=== PATIENT | female | born 1965 | race African-American/Black ===

== ENCOUNTER 2020-01-15 14:40 | Inpatient (IN) | payer OTHER ==
[2020-01-15] MEDS ORDERED: NICOTINE POLACRILEX 2 MG GUM BUC PRN (19:06)
[2020-01-15] MEDS ORDERED: IBUPROFEN 400 MG TABLET (FP) PO PRN (19:06)
[2020-01-15] MEDS ORDERED: guaiFENesin 200 MG/10 ML 10 ML UNIT-DOSE CUPS PO PRN (19:06)
[2020-01-15] MEDS ORDERED: P-EPHED 60MG/TRIPROLIDI 2.5MG TABLET PO PRN (19:06)
[2020-01-15] MEDS ORDERED: ACETAMINOPHEN 325 MG TABLET (FP) PO PRN (19:06)
[2020-01-15] MEDS ORDERED: MAGNESIUM HYDROX 2400MG/30ML ORAL SUSPENSION 30 ML CUP PO PRN (19:06)
[2020-01-15] MEDS ORDERED: LOPERAMIDE HCL 2 MG CAPSULE PO PRN (19:06)
[2020-01-15] MEDS ORDERED: MAG HYDROX/AL HYDROX/SIMETH 30 ML UNIT-DOSE CUP PO PRN (19:06)
[2020-01-15] MEDS ORDERED: MAGNESIUM CITRATE 300 ML BOTTLE PO PRN (19:06)
[2020-01-15] MEDS ORDERED: AMMONIUM LACTATE 12% LOTION 225 GM BOTTLE TP PRN (19:10)
[2020-01-15 19:40] VITALS: BMI 27.3
[2020-01-15] MEDS: THIAMINE HCL 100 MG TABLET (FP) PO SCH (21:48)
[2020-01-15] MEDS: hydrOXYzine PAMOATE 25 MG CAPSULE (FP) PO SCH (21:48)
[2020-01-15] MEDS: INSULIN SLIDING SCALE (NOVOLOG) 1 VIAL SQ SCH (21:55)
[2020-01-15] MEDS ORDERED: MELATONIN 5 MG TABLETS PO SCH (22:00)
[2020-01-15] MEDS ORDERED: PT OWN MED DRAWER 7, Y5N ONE (22:50)
[2020-01-15 23:39] LABS: PH,URINE 6.5 (5.0-8.0); URINE APPEARANCE CLEAR; URINE BILIRUBIN NEGATIVE (NEGATIVE); URINE COLOR YELLOW; URINE GLUCOSE (UA) 3+ (NEGATIVE); URINE KETONE NEGATIVE (NEGATIVE); URINE LEUK ESTERASE NEGATIVE (NEGATIVE); URINE NITRITE NEGATIVE (NEGATIVE); URINE PROTEIN NEGATIVE (NEGATIVE)
[2020-01-16] MEDS: hydrOXYzine PAMOATE 25 MG CAPSULE (FP) PO SCH ×5 (06:54→21:08)
[2020-01-16] MEDS: INSULIN SLIDING SCALE (NOVOLOG) 1 VIAL SQ SCH ×4 (06:56→21:05)
[2020-01-16] MEDS ORDERED: PT OWN MED DRAWER 7, Y5N ONE ×4 (09:00→22:09)
[2020-01-16] MEDS ORDERED: ANASTROZOLE 1 MG TABLET PO SCH (10:00)
[2020-01-16 10:17] LABS: HEMATOCRIT 40.4 % (32.4-45.2); HEMOGLOBIN 13.3 GM/dL (10.7-15.3); MCH 29.6 pg (25.7-33.7); MEAN CELL VOLUME 89.8 fl (80-96); MEAN PLT VOLUME 9.5 fl (7.5-11.1); PLATELET COUNT 222 K/MM3 (134-434); RDW 13.7 % (11.6-15.6); WHITE BLOOD COUNT 6.4 K/mm3 (4.0-10.0)
[2020-01-16 10:20] LABS: POTASSIUM 3.6 mmol/L (3.5-5.1)
[2020-01-16 10:29] LABS: ALBUMIN 3.5 g/dl (3.4-5.0); BLOOD UREA NITROGEN 8.8 mg/dL (7-18); CALCIUM 9.1 mg/dL (8.5-10.1)
[2020-01-16 10:34] LABS: BILIRUBIN,TOTAL 0.6 mg/dL (0.2-1); TOT PROT 6.6 g/dl (6.4-8.2)
[2020-01-16] MEDS: SITAGLIPTIN PHOSPHATE 100 MG PO SCH (11:24)
[2020-01-16] MEDS: NICOTINE 21 MG/24 HOURS TOPICAL PATCH TD SCH (11:24)
[2020-01-16] MEDS: PRENATAL VITAMINS W/ FOLIC ACID TABLET (FP) PO SCH (11:24)
[2020-01-16] MEDS: ANASTROZOLE 1 MG PO SCH (11:24)
[2020-01-16] MEDS ORDERED: TUBERCULIN PPD 5 TU/0.1ML VIAL ID ONE (11:29)
[2020-01-16] MEDS ORDERED: INSULIN (NOVOLOG) ASPART 100 UNITS/ML 10ML VIAL ONE ×2 (11:29→21:01)
[2020-01-16 11:30] LABS: SICKLE CELL SCREEN NEGATIVE (NEGATIVE)
[2020-01-16] MEDS: LURASIDONE HCL 20 MG TABLET PO SCH (17:49)
[2020-01-16] MEDS: MELATONIN 5 MG TABLETS PO SCH (21:04)
[2020-01-16] MEDS: THIAMINE HCL 100 MG TABLET (FP) PO SCH (21:04)
[2020-01-17] MEDS: hydrOXYzine PAMOATE 25 MG CAPSULE (FP) PO SCH ×5 (06:30→21:37)
[2020-01-17] MEDS: SITAGLIPTIN PHOSPHATE 100 MG PO SCH (06:30)
[2020-01-17] MEDS ORDERED: INSULIN (NOVOLOG) ASPART 100 UNITS/ML 10ML VIAL ONE ×2 (07:12→16:24)
[2020-01-17] MEDS: INSULIN SLIDING SCALE (NOVOLOG) 1 VIAL SQ SCH ×4 (07:59→21:38)
[2020-01-17] MEDS ORDERED: PT OWN MED DRAWER 7, Y5N ONE ×2 (09:02→16:35)
[2020-01-17] MEDS: ANASTROZOLE 1 MG PO SCH (09:29)
[2020-01-17] MEDS: NICOTINE 21 MG/24 HOURS TOPICAL PATCH TD SCH (09:30)
[2020-01-17] MEDS: PRENATAL VITAMINS W/ FOLIC ACID TABLET (FP) PO SCH (09:30)
[2020-01-17] MEDS: LURASIDONE HCL 20 MG TABLET PO SCH (17:58)
[2020-01-17] MEDS ORDERED: MASKS NR ONE (18:31)
[2020-01-17] MEDS: THIAMINE HCL 100 MG TABLET (FP) PO SCH (21:35)
[2020-01-17] MEDS: MELATONIN 5 MG TABLETS PO SCH (21:35)
[2020-01-18] MEDS: hydrOXYzine PAMOATE 25 MG CAPSULE (FP) PO SCH ×5 (07:04→21:09)
[2020-01-18] MEDS: SITAGLIPTIN PHOSPHATE 100 MG PO SCH (07:04)
[2020-01-18] MEDS ORDERED: INSULIN (NOVOLOG) ASPART 100 UNITS/ML 10ML VIAL ONE ×3 (08:16→16:34)
[2020-01-18] MEDS: INSULIN SLIDING SCALE (NOVOLOG) 1 VIAL SQ SCH ×4 (08:23→21:12)
[2020-01-18] MEDS: NICOTINE 21 MG/24 HOURS TOPICAL PATCH TD SCH (10:02)
[2020-01-18] MEDS: ANASTROZOLE 1 MG PO SCH (10:02)
[2020-01-18] MEDS: PRENATAL VITAMINS W/ FOLIC ACID TABLET (FP) PO SCH (10:02)
[2020-01-18] MEDS ORDERED: PT OWN MED DRAWER 7, Y5N ONE (16:33)
[2020-01-18] MEDS: LURASIDONE HCL 20 MG TABLET PO SCH (19:03)
[2020-01-18] MEDS: THIAMINE HCL 100 MG TABLET (FP) PO SCH (21:09)
[2020-01-18] MEDS: MELATONIN 5 MG TABLETS PO SCH (21:09)
[2020-01-19] MEDS ORDERED: PT OWN MED DRAWER 7, Y5N ONE ×3 (03:24→08:38)
[2020-01-19] MEDS: hydrOXYzine PAMOATE 25 MG CAPSULE (FP) PO SCH ×5 (06:20→21:22)
[2020-01-19] MEDS: SITAGLIPTIN PHOSPHATE 100 MG PO SCH (06:20)
[2020-01-19] MEDS: INSULIN SLIDING SCALE (NOVOLOG) 1 VIAL SQ SCH ×4 (06:21→21:25)
[2020-01-19] MEDS ORDERED: INSULIN (NOVOLOG) ASPART 100 UNITS/ML 10ML VIAL ONE ×3 (06:22→16:35)
[2020-01-19] MEDS: NICOTINE 21 MG/24 HOURS TOPICAL PATCH TD SCH (09:46)
[2020-01-19] MEDS: ANASTROZOLE 1 MG PO SCH (09:46)
[2020-01-19] MEDS: PRENATAL VITAMINS W/ FOLIC ACID TABLET (FP) PO SCH (09:47)
[2020-01-19] MEDS: LURASIDONE HCL 20 MG TABLET PO SCH (19:34)
[2020-01-19] MEDS: THIAMINE HCL 100 MG TABLET (FP) PO SCH (21:22)
[2020-01-19] MEDS: MELATONIN 5 MG TABLETS PO SCH (21:22)
[2020-01-20] MEDS ORDERED: PT OWN MED DRAWER 7, Y5N ONE ×4 (03:39→16:52)
[2020-01-20] MEDS: SITAGLIPTIN PHOSPHATE 100 MG PO SCH (06:38)
[2020-01-20] MEDS: INSULIN SLIDING SCALE (NOVOLOG) 1 VIAL SQ SCH ×4 (06:38→21:27)
[2020-01-20] MEDS: hydrOXYzine PAMOATE 25 MG CAPSULE (FP) PO SCH ×2 (06:38→09:55)
[2020-01-20] MEDS ORDERED: INSULIN (NOVOLOG) ASPART 100 UNITS/ML 10ML VIAL ONE ×4 (07:05→21:28)
[2020-01-20] MEDS: NICOTINE 21 MG/24 HOURS TOPICAL PATCH TD SCH (09:55)
[2020-01-20] MEDS: PRENATAL VITAMINS W/ FOLIC ACID TABLET (FP) PO SCH (09:55)
[2020-01-20] MEDS: ANASTROZOLE 1 MG PO SCH (09:55)
[2020-01-20] MEDS: LURASIDONE HCL 20 MG TABLET PO SCH (17:49)
[2020-01-20] MEDS: hydrOXYzine PAMOATE 25 MG CAPSULE (FP) PO PRN ×2 (17:50→21:30)
[2020-01-20] MEDS: MELATONIN 5 MG TABLETS PO SCH (21:30)
[2020-01-20] MEDS: THIAMINE HCL 100 MG TABLET (FP) PO SCH (21:30)
[2020-01-21] MEDS ORDERED: PT OWN MED DRAWER 7, Y5N ONE ×2 (03:42→16:34)
[2020-01-21] MEDS: SITAGLIPTIN PHOSPHATE 100 MG PO SCH (06:23)
[2020-01-21] MEDS: INSULIN SLIDING SCALE (NOVOLOG) 1 VIAL SQ SCH ×4 (06:23→21:25)
[2020-01-21] MEDS: ANASTROZOLE 1 MG PO SCH (09:42)
[2020-01-21] MEDS: PRENATAL VITAMINS W/ FOLIC ACID TABLET (FP) PO SCH (09:42)
[2020-01-21] MEDS: NICOTINE 21 MG/24 HOURS TOPICAL PATCH TD SCH (09:43)
[2020-01-21] MEDS ORDERED: INSULIN (NOVOLOG) ASPART 100 UNITS/ML 10ML VIAL ONE ×2 (11:48→16:20)
[2020-01-21] MEDS: LURASIDONE HCL 20 MG TABLET PO SCH (18:14)
[2020-01-21] MEDS: hydrOXYzine PAMOATE 25 MG CAPSULE (FP) PO PRN (18:14)
[2020-01-21] MEDS: MELATONIN 5 MG TABLETS PO SCH (21:24)
[2020-01-21] MEDS: THIAMINE HCL 100 MG TABLET (FP) PO SCH (21:24)
[2020-01-22] MEDS ORDERED: PT OWN MED DRAWER 7, Y5N ONE ×4 (01:46→16:31)
[2020-01-22] MEDS: SITAGLIPTIN PHOSPHATE 100 MG PO SCH (06:12)
[2020-01-22] MEDS: INSULIN SLIDING SCALE (NOVOLOG) 1 VIAL SQ SCH ×4 (06:13→21:08)
[2020-01-22] MEDS ORDERED: INSULIN (NOVOLOG) ASPART 100 UNITS/ML 10ML VIAL ONE ×3 (06:15→16:26)
[2020-01-22] MEDS: ANASTROZOLE 1 MG PO SCH (09:57)
[2020-01-22] MEDS: NICOTINE 21 MG/24 HOURS TOPICAL PATCH TD SCH (09:57)
[2020-01-22] MEDS: PRENATAL VITAMINS W/ FOLIC ACID TABLET (FP) PO SCH (09:58)
[2020-01-22] MEDS: hydrOXYzine PAMOATE 25 MG CAPSULE (FP) PO PRN ×3 (09:58→21:05)
[2020-01-22] MEDS: LURASIDONE HCL 20 MG TABLET PO SCH (18:37)
[2020-01-22] MEDS: MELATONIN 5 MG TABLETS PO SCH (21:05)
[2020-01-22] MEDS: THIAMINE HCL 100 MG TABLET (FP) PO SCH (21:05)
[2020-01-23] MEDS ORDERED: PT OWN MED DRAWER 7, Y5N ONE ×4 (04:04→21:41)
[2020-01-23] MEDS: SITAGLIPTIN PHOSPHATE 100 MG PO SCH (06:20)
[2020-01-23] MEDS: INSULIN SLIDING SCALE (NOVOLOG) 1 VIAL SQ SCH ×4 (06:20→21:09)
[2020-01-23] MEDS ORDERED: INSULIN (NOVOLOG) ASPART 100 UNITS/ML 10ML VIAL ONE ×3 (07:15→21:38)
[2020-01-23] MEDS: PRENATAL VITAMINS W/ FOLIC ACID TABLET (FP) PO SCH (09:55)
[2020-01-23] MEDS: ANASTROZOLE 1 MG PO SCH (09:55)
[2020-01-23] MEDS: NICOTINE 21 MG/24 HOURS TOPICAL PATCH TD SCH (09:56)
[2020-01-23] MEDS: hydrOXYzine PAMOATE 25 MG CAPSULE (FP) PO PRN ×2 (18:00→21:06)
[2020-01-23] MEDS: LURASIDONE HCL 20 MG TABLET PO SCH (18:01)
[2020-01-23] MEDS: MELATONIN 5 MG TABLETS PO SCH (21:06)
[2020-01-23] MEDS: THIAMINE HCL 100 MG TABLET (FP) PO SCH (21:06)
[2020-01-23] MEDS: traZODone HCL 50 MG TABLET (FP) PO SCH (21:07)
[2020-01-24] MEDS ORDERED: PT OWN MED DRAWER 7, Y5N ONE ×4 (05:20→17:52)
[2020-01-24] MEDS: SITAGLIPTIN PHOSPHATE 100 MG PO SCH (06:35)
[2020-01-24] MEDS ORDERED: INSULIN (NOVOLOG) ASPART 100 UNITS/ML 10ML VIAL ONE ×4 (06:56→21:14)
[2020-01-24] MEDS: INSULIN SLIDING SCALE (NOVOLOG) 1 VIAL SQ SCH ×4 (07:40→21:15)
[2020-01-24] MEDS: ANASTROZOLE 1 MG PO SCH (09:06)
[2020-01-24] MEDS: PRENATAL VITAMINS W/ FOLIC ACID TABLET (FP) PO SCH (09:06)
[2020-01-24] MEDS: NICOTINE 21 MG/24 HOURS TOPICAL PATCH TD SCH (09:07)
[2020-01-24] MEDS: LURASIDONE HCL 20 MG TABLET PO SCH (17:53)
[2020-01-24] MEDS: MELATONIN 5 MG TABLETS PO SCH (21:11)
[2020-01-24] MEDS: THIAMINE HCL 100 MG TABLET (FP) PO SCH (21:12)
[2020-01-24] MEDS: traZODone HCL 50 MG TABLET (FP) PO SCH (21:15)
[2020-01-24] MEDS: hydrOXYzine PAMOATE 25 MG CAPSULE (FP) PO PRN (21:16)
[2020-01-25] MEDS ORDERED: PT OWN MED DRAWER 7, Y5N ONE ×3 (03:47→16:29)
[2020-01-25] MEDS: INSULIN SLIDING SCALE (NOVOLOG) 1 VIAL SQ SCH ×4 (06:29→21:18)
[2020-01-25] MEDS: SITAGLIPTIN PHOSPHATE 100 MG PO SCH (06:30)
[2020-01-25] MEDS ORDERED: INSULIN (NOVOLOG) ASPART 100 UNITS/ML 10ML VIAL ONE ×2 (06:58→21:19)
[2020-01-25] MEDS: NICOTINE 21 MG/24 HOURS TOPICAL PATCH TD SCH (09:48)
[2020-01-25] MEDS: PRENATAL VITAMINS W/ FOLIC ACID TABLET (FP) PO SCH (09:48)
[2020-01-25] MEDS: ANASTROZOLE 1 MG PO SCH (09:50)
[2020-01-25] MEDS: hydrOXYzine PAMOATE 25 MG CAPSULE (FP) PO PRN ×2 (09:50→21:20)
[2020-01-25] MEDS: LURASIDONE HCL 20 MG TABLET PO SCH (17:09)
[2020-01-25] MEDS: traZODone HCL 50 MG TABLET (FP) PO SCH (21:20)
[2020-01-25] MEDS: MELATONIN 5 MG TABLETS PO SCH (21:20)
[2020-01-25] MEDS: THIAMINE HCL 100 MG TABLET (FP) PO SCH (21:20)
[2020-01-26] MEDS ORDERED: PT OWN MED DRAWER 7, Y5N ONE ×4 (03:59→17:43)
[2020-01-26] MEDS: SITAGLIPTIN PHOSPHATE 100 MG PO SCH (06:43)
[2020-01-26] MEDS: INSULIN SLIDING SCALE (NOVOLOG) 1 VIAL SQ SCH ×4 (06:45→21:23)
[2020-01-26] MEDS ORDERED: INSULIN (NOVOLOG) ASPART 100 UNITS/ML 10ML VIAL ONE ×3 (07:15→21:23)
[2020-01-26] MEDS: PRENATAL VITAMINS W/ FOLIC ACID TABLET (FP) PO SCH (09:47)
[2020-01-26] MEDS: ANASTROZOLE 1 MG PO SCH (09:48)
[2020-01-26] MEDS: NICOTINE 21 MG/24 HOURS TOPICAL PATCH TD SCH (09:48)
[2020-01-26] MEDS: LURASIDONE HCL 20 MG TABLET PO SCH (18:20)
[2020-01-26] MEDS: THIAMINE HCL 100 MG TABLET (FP) PO SCH (21:18)
[2020-01-26] MEDS: traZODone HCL 50 MG TABLET (FP) PO SCH (21:18)
[2020-01-26] MEDS: MELATONIN 5 MG TABLETS PO SCH (21:18)
[2020-01-26] MEDS: hydrOXYzine PAMOATE 25 MG CAPSULE (FP) PO PRN (21:18)
[2020-01-27] MEDS ORDERED: PT OWN MED DRAWER 7, Y5N ONE ×3 (05:13→09:09)
[2020-01-27] MEDS: SITAGLIPTIN PHOSPHATE 100 MG PO SCH (06:24)
[2020-01-27] MEDS ORDERED: INSULIN (NOVOLOG) ASPART 100 UNITS/ML 10ML VIAL ONE ×4 (07:10→21:47)
[2020-01-27] MEDS: INSULIN SLIDING SCALE (NOVOLOG) 1 VIAL SQ SCH ×4 (07:38→21:16)
[2020-01-27] MEDS: NICOTINE 21 MG/24 HOURS TOPICAL PATCH TD SCH (09:56)
[2020-01-27] MEDS: PRENATAL VITAMINS W/ FOLIC ACID TABLET (FP) PO SCH (09:56)
[2020-01-27] MEDS: ANASTROZOLE 1 MG PO SCH (09:57)
[2020-01-27] MEDS: hydrOXYzine PAMOATE 25 MG CAPSULE (FP) PO PRN ×2 (09:57→21:13)
[2020-01-27] MEDS: valACYclovir HCL 500 MG TABLET (FP) PO SCH ×2 (12:02→21:12)
[2020-01-27] MEDS: LURASIDONE HCL 20 MG TABLET PO SCH (18:25)
[2020-01-27] MEDS: MELATONIN 5 MG TABLETS PO SCH (21:11)
[2020-01-27] MEDS: THIAMINE HCL 100 MG TABLET (FP) PO SCH (21:11)
[2020-01-27] MEDS: traZODone HCL 50 MG TABLET (FP) PO SCH (21:12)
[2020-01-28] MEDS: SITAGLIPTIN PHOSPHATE 100 MG PO SCH (06:30)
[2020-01-28] MEDS: INSULIN SLIDING SCALE (NOVOLOG) 1 VIAL SQ SCH (06:30)
[2020-01-28] MEDS ORDERED: INSULIN (NOVOLOG) ASPART 100 UNITS/ML 10ML VIAL ONE (06:51)
[2020-01-28 06:59] VITALS: BP 96/69; PULSE 69; TEMP 98
[2020-01-28] MEDS ORDERED: PT OWN MED DRAWER 7, Y5N ONE (08:44)
[2020-01-28] MEDS: PRENATAL VITAMINS W/ FOLIC ACID TABLET (FP) PO SCH (09:02)
[2020-01-28] MEDS: ANASTROZOLE 1 MG PO SCH (09:02)
[2020-01-28] MEDS: valACYclovir HCL 500 MG TABLET (FP) PO SCH (09:03)
[2020-01-28] MEDS: NICOTINE 21 MG/24 HOURS TOPICAL PATCH TD SCH (09:03)
== END 2020-01-28 09:25 | disposition home or self-care (01) | DRG 895 ==
LOC: YASAS 14:40 → Y3E 19:20
PROVIDERS: ADMIT Allergy & Immunology; ATTEND Allergy & Immunology
PROC: HZ42ZZZ Group Counseling for Substance Abuse Treatment, Cognitive-Behavioral (ICD-10-PCS; principal; 2020-01-15)
DX: F14.20 Cocaine dependence, uncomplicated (principal); F17.210 Nicotine dependence, cigarettes, uncomplicated; F10.20 Alcohol dependence, uncomplicated; F19.24 Other psychoactive substance dependence with psychoactive substance-induced mood disorder; F43.10 Post-traumatic stress disorder, unspecified; F32.9 Major depressive disorder, single episode, unspecified; E11.9 Type 2 diabetes mellitus without complications; Z79.84 Long term (current) use of oral hypoglycemic drugs; A60.00 Herpesviral infection of urogenital system, unspecified; M54.89 Other dorsalgia; G89.29 Other chronic pain; Z62.810 Personal history of physical and sexual abuse in childhood; Z85.79 Personal history of other malignant neoplasms of lymphoid, hematopoietic and related tissues; Z85.3 Personal history of malignant neoplasm of breast; Z90.11 Acquired absence of right breast and nipple
CPT/HCPCS: 36415; 80053; 81003; 81025; 82962; 85027; 85660; 86780; 93005; 93010; C9803; U0003